=== PATIENT | male | born 1980 | race Two or more races ===

== ENCOUNTER 2019-02-01 16:22 | Emergency (ER) | payer OTHER ==
[~2019-02-01] VITALS: Ht 193 cm; Wt 97.5 kg
[2019-02-01] MEDS ORDERED: LIDOCAINE 1% INJ 50 ML MDV IJ ONE (17:30)
--- NOTE | 2019-02-01 17:30 | NUR ---
lac on the testis during skateboarding, on room air, breathing evenly and unlabored. connected to the monitor and pulse ox. kept comfortable, will continue to monitor accordingly.
[2019-02-01] MEDS ORDERED: LIDOCAINE 0.5% HCL 50 ML VIAL ONE (17:45)
--- NOTE | 2019-02-01 18:22 | NUR ---
jesse calvillo at bedside
--- NOTE | 2019-02-01 19:18 | NUR ---
report given to Mary LEONARD for jamilah
[2019-02-01 19:38] VITALS: BP 115/81
== END 2019-02-01 19:38 | disposition home or self-care (01) ==
LOC: ER 16:24
DX: S31.31XA Laceration without foreign body of scrotum and testes, initial encounter (principal); W01.0XXA Fall on same level from slipping, tripping and stumbling without subsequent striking against object, initial encounter; Y93.51 Activity, roller skating (inline) and skateboarding; Y92.89 Other specified places as the place of occurrence of the external cause; Y99.8 Other external cause status
CPT/HCPCS: 12002; 76870; 99284; J3490